=== PATIENT | female | born 1970 | race Caucasian/White ===

== ENCOUNTER → 2017-07-04 | Outpatient (CLI) | payer BC | LOC: FIMAGING 12:23 | PROVIDERS: ATTEND Obstetrics & Gynecology Gynecology | DX: Z12.31 Encounter for screening mammogram for malignant neoplasm of breast (principal) | CPT/HCPCS: G0202 ==

== ENCOUNTER → 2018-09-05 | Outpatient (CLI) | payer BC | LOC: FIMAGING 11:03 | PROVIDERS: ATTEND Obstetrics & Gynecology Gynecology | DX: Z12.31 Encounter for screening mammogram for malignant neoplasm of breast (principal); Z80.3 Family history of malignant neoplasm of breast; R93.89 Abnormal findings on diagnostic imaging of other specified body structures ==

== ENCOUNTER → 2018-09-18 | Outpatient (CLI) | payer BC | LOC: FIMAGING 06:41 | PROVIDERS: ATTEND Physician Assistant Medical | DX: R92.8 Other abnormal and inconclusive findings on diagnostic imaging of breast (principal) ==

== ENCOUNTER → 2019-01-14 | Outpatient (CLI) | payer BC | LOC: FIMAGING 14:04 | PROVIDERS: ATTEND Obstetrics & Gynecology Gynecology | DX: N63.11 Unspecified lump in the right breast, upper outer quadrant (principal) ==